=== PATIENT | male | born 1955 | race Caucasian/White ===

== ENCOUNTER 2016-11-02 08:50 | Inpatient (IN) | payer OTHER ==
[2016-11-02] MEDS ORDERED: NORMAL SALINE 1000 ML 1,000 ML IV PRN (09:37)
--- NOTE | 2016-11-02 09:39 | ER Document Report ---
ED Medical Screen (RME) - General Chief Complaint: Rectal Bleeding Stated Complaint: RECTAL BLEEDING Time Seen by Provider: 11/02/16 09:29 Mode of Arrival: Wheelchair Information source: Patient TRAVEL OUTSIDE OF THE [place] IN LAST 30 DAYS: No - HPI Patient complains to provider of: Rectal bleeding Onset: Yesterday Notes: 11/02/16 09:38 Patient is a 61-year-old male who presents to the emergency room complaining of rectal bleeding with large clot passage since yesterday around 3 PM, states he has had 6 large bloody bowel movements, he is now having hot flashes and feeling lightheaded, has a history of perforated diverticulum in the past with colon resection, this occurred in 2000, he required a transfusion at that time as well, he denies any abdominal pain, hypertension and CVA, currently takes Aggrenox - Related Data Allergies/Adverse Reactions: No Known Allergies Allergy (Verified 11/02/16 08:53) Past Medical History - Past Medical History Cardiac Medical History: Reports: Hx Hypertension Denies: Hx Coronary Artery Disease, Hx Heart Attack Pulmonary Medical History: Denies: Hx Asthma, Hx Bronchitis, Hx COPD, Hx Pneumonia Neurological Medical History: Denies: Hx Cerebrovascular Accident, Hx Seizures Endocrine Medical History: Reports: Hx Diabetes Mellitus Type 2 Renal/ Medical History: Denies: Hx Peritoneal Dialysis GI Medical History: Denies: Hx Hepatitis, Hx Hiatal Hernia, Hx Ulcer Musculoskeltal Medical History: Denies Hx Arthritis Infectious Medical History: Denies: Hx Hepatitis Past Surgical History: Denies: Hx Open Heart Surgery, Hx Pacemaker - Immunizations Hx Diphtheria, Pertussis, Tetanus Vaccination: No Physical Exam - Vital signs Vitals: Temp Pulse Resp BP Pulse Ox 97.6 F 128 H 20 127/81 H 96 11/02/16 08:56 11/02/16 08:56 11/02/16 08:56 11/02/16 08:56 11/02/16 08:56 Course - Vital Signs Vital signs: Temp Pulse Resp BP Pulse Ox 97.6 F 128 H 20 127/81 H 96 11/02/16 08:56 11/02/16 08:56 11/02/16 08:56 11/02/16 08:56 11/02/16 08:56
[2016-11-02 10:16] LABS: ABSOLUTE BASOPHILS # (AUTO) 0.1 10^3/uL (0.0-0.2); ABSOLUTE LYMPHOCYTES (AUTO) 1.4 10^3/uL (0.5-4.7); ABSOLUTE MONOCYTES (AUTO) 0.6 10^3/uL (0.1-1.4); ABSOLUTE NEUT (AUTO) 8.4 10^3/uL (1.7-8.2); BASOPHILS % (AUTO) 0.5 % (0-2); EOSINOPHILS % (AUTO) 0.3 % (0-6); HEMATOCRIT 39.5 % (37.9-51.0); HEMOGLOBIN 12.9 g/dL (13.5-17.0); HGB HCT DIFFERENCE -0.8; LYMPHOCYTES % (AUTO) 13.7 % (13-45); MEAN CORPUSCULAR HEMOGLOBIN 31.6 pg (27.0-33.4); MEAN CORPUSCULAR HGB CONC 32.6 g/dL (32.0-36.0); MEAN CORPUSCULAR VOLUME 97 fl (80-97); MONOCYTES % (AUTO) 5.6 % (3-13); RED BLOOD COUNT 4.07 10^6/uL (4.35-5.55); RED CELL DISTRIBUTION WIDTH 14.4 % (11.5-14.0); SEGMENTED NEUTROPHILS % (AUTO) 79.9 % (42-78); WHITE BLOOD COUNT 10.6 10^3/uL (4.0-10.5)
[2016-11-02 10:22] LABS: PARTIAL THROMBOPLASTIN TIME 25.6 SEC (23.5-35.8); PROTHROMBIN TIME 14.4 SEC (11.4-15.4)
--- NOTE | 2016-11-02 10:35 | ER Document Report ---
ED GI Bleed / Rectal Pain - General Chief Complaint: Rectal Bleeding Stated Complaint: RECTAL BLEEDING Time Seen by Provider: 11/02/16 09:29 Mode of Arrival: Wheelchair Notes: Patient says that he began to experience rectal bleeding yesterday. He has had about 6 bowel movements with blood and clots. Patient has a history of partial colectomy, descending, for bleeding in 2000. He has not had any bleeding problems since then. Had an upper GI done earlier this month and had a colonoscopy about 1 year ago. Both of these procedures were performed by Dr. George. Patient denies having any abdominal pain. Has had some nausea but not vomiting. Says he has felt feverish after having bowel movements for the last 24 hours. Patient is currently on Aggrenox as he previously had been diagnosed as having a mini stroke. TRAVEL OUTSIDE OF THE [place] IN LAST 30 DAYS: No - Related Data Allergies/Adverse Reactions: No Known Allergies Allergy (Verified 11/02/16 08:53) Home Medications: Current Home Medications Aspirin/Dipyridamole [Aggrenox 25 mg/200 mg Capsule SA] 1 cap PO Q12 11/02/16 [ History] Dapagliflozin/Metformin HCl [Xigduo Xr 5 mg-1,000 mg Tablet] 1 tab PO DAILY [History] Fenofibrate 160 mg PO DAILY 11/02/16 [History] Hydrochlorothiazide 25 mg PO DAILY 11/02/16 [History] Insulin Detemir [Levemir Flextouch] 50 units SQ BID 11/02/16 [History] Irbesartan [Avapro] 300 mg PO DAILY 11/02/16 [History] Lansoprazole [Prevacid] 30 mg PO DAILY 11/02/16 [History] Liraglutide [Victoza 2-River] 1.8 mg SQ DAILY 11/02/16 [History] Past Medical History - General Information source: Patient - Social History Smoking Status: Unknown if Ever Smoked Cigarette use (# per day): No Family History: Reviewed & Not Pertinent Patient has suicidal ideation: No Patient has homicidal ideation: No - Past Medical History Cardiac Medical History: Reports: Hx Hypertension Neurological Medical History: Reports: Hx Cerebrovascular Accident Endocrine Medical History: Reports: Hx Diabetes Mellitus Type 2 GI Medical History: Reports: Other - History of Abbott's esophagitis. Denies: Hx Hepatitis, Hx Hiatal Hernia, Hx Ulcer Musculoskeltal Medical History: Denies Hx Arthritis Infectious Medical History: Denies: Hx Hepatitis Past Surgical History: Reports: Hx Abdominal Surgery, Hx Herniorrhaphy, Other - Colectomy for lower GI bleeding 2000 - Immunizations Hx Diphtheria, Pertussis, Tetanus Vaccination: No Review of Systems - Review of Systems Notes: REVIEW OF SYSTEMS: CONSTITUTIONAL : Feels like he has a fever after having each bloody bowel movement over the last 24 hours. EENT: Denies eye, ear, nose or mouth or throat pain or other symptoms. CARDIOVASCULAR: Denies chest pain. RESPIRATORY: Denies cough, chest congestion, or shortness of breath. GASTROINTESTINAL: Denies abdominal pain or nausea, vomiting, or diarrhea. See HPI. GENITOURINARY: Denies difficulty or painful urinating, urinary frequency, blood in urine. MUSCULOSKELETAL: Denies back or neck pain. Denies joint pain or swelling. SKIN: Denies rash or skin lesions. NEUROLOGICAL: Denies LOC or altered mental status. Denies headache. Denies sensory loss or motor deficits. ALL OTHER SYSTEMS REVIEWED AND NEGATIVE. Physical Exam - Vital signs Vitals: Temp Pulse Resp BP Pulse Ox 97.6 F 128 H 20 127/81 H 96 11/02/16 08:56 11/02/16 08:56 11/02/16 08:56 11/02/16 08:56 11/02/16 08:56 Interpretation: Tachycardic - Notes Notes: PHYSICAL EXAMINATION: GENERAL: Well-appearing, in no acute distress. Tachycardia in triage. HEAD: Atraumatic, normocephalic. EYES: Pupils equal round and reactive to light, extraocular movements intact. ENT: oropharynx clear without exudates. Moist mucous membranes. NECK: Normal range of motion, supple. LUNGS: Breath sounds clear and equal bilaterally. HEART: Regular rate and rhythm without murmurs. ABDOMEN: Soft, nontender. No guarding or rebound. Rectal exam with gross blood present. No masses felt. No hemorrhoids seen or felt. BACK: No tenderness throughout entire back. EXTREMITIES: Normal range of motion without pain. NEUROLOGICAL: Normal speech, normal gait. Normal sensory, motor, and reflex exams. Awake, alert, and oriented x3. Cranial nerves normal. SKIN: Warm, dry, no rashes. Course - Re-evaluation Re-evalutation: 11/02/16 11:[address] George who will consult on the patient. Will call patient's primary care physician for admission. 11/02/16 11:[address] Palacio patient's primary care provider, and he will admit the patient to [facility]. - Vital Signs Vital signs: Temp Pulse Resp BP Pulse Ox 98.5 F 100 18 122/72 95 11/02/16 19:55 11/02/16 19:55 11/02/16 19:55 11/02/16 19:55 11/02/16 19:55 - Laboratory Result Diagrams: 11/02/16 17:03 11/02/16 09:50 Laboratory results interpreted by me: 11/02/16 11/02/16 09:50 09:50 WBC 10.6 H RBC 4.07 L Hgb 12.9 L RDW 14.4 H Seg Neutrophils % 79.9 H Absolute Neutrophils 8.4 H Sodium 135.7 L Carbon Dioxide 16 L Anion Gap 22 H BUN 23 H Creatinine 1.29 H Est GFR (Non-Af Amer) 57 L Glucose 492 H* Total Protein 6.2 L Critical Care Note - Critical Care Note Total time excluding time spent on procedures (mins): 30 Discharge - Discharge Clinical Impression: Rectal bleeding, Hyperglycemia Admitting Provider: Marty Unit Admitted: [facility]
[2016-11-02 10:37] LABS: ALANINE AMINOTRANSFERASE 37 U/L (21-72); ALBUMIN 3.7 g/dL (3.5-5.0); ALKALINE PHOSPHATASE 112 U/L (38-126); ASPARTATE AMINO TRANSFERASE 17 U/L (17-59); BILIRUBIN,DIRECT 0.4 mg/dL (0.0-0.4); BILIRUBIN,TOTAL 0.6 mg/dL (0.2-1.3); BLOOD UREA NITROGEN 23 mg/dL (7-20); CALCIUM 9.3 mg/dL (8.4-10.2); CHLORIDE 98 mmol/L (98-107); CREATININE RESULT 1.29 mg/dL (0.52-1.25); TOTAL PROTEIN 6.2 g/dL (6.3-8.2)
[2016-11-02 10:50] LABS: CARBON DIOXIDE 16 mmol/L (22-30); SODIUM 135.7 mmol/L (137-145)
[2016-11-02 10:51] LABS: ANION GAP 22 (5-19)
[2016-11-02 10:53] LABS: GLUCOSE 492 mg/dL (75-110)
[2016-11-02] MEDS ORDERED: INSULIN REG, HUMAN 100 UNIT/ML 3 ML VIAL (PYX) SUBCUT ONE (11:40)
[2016-11-02] MEDS ORDERED: INSULIN LISPRO 100 UNIT/ML 3 ML VIAL SUBCUT PRN (12:45)
[2016-11-02] MEDS ORDERED: DEXTROSE 50%-WATER 25 GM/50 ML DISP.SYRIN IV PRN ×2 (12:45)
[2016-11-02] MEDS ORDERED: GLUCAGON,HUMAN RECOMB 1 MG INJ IM PRN (12:45)
[2016-11-02] MEDS ORDERED: DEXTROSE 40% GEL 15 GM TUBE PO PRN ×2 (12:45)
[2016-11-02] MEDS ORDERED: PEG 3350/NA SULF,BICARB,CL/KCL 4000 ML PO ONE (13:00)
--- NOTE | 2016-11-02 17:07 | PDOC H&P ---
History of Present Illness Admission Date/PCP: 11/02/16 12:38 ANGÉLICA CASTRO, Patient complains of: Rectal bleeding History of Present Illness: REYES CISNEROS JR is a 61 year old male Past medical history of diverticulosis status post partial colectomy was in his usual state of health until apparently 24 hours ago when he woke up with rectal bleeding. He apparently had some watermelon and did not think anything of it. She came into the emergency room after another episode of rectal bleed to be evaluated was found to be in distress and was admitted for further evaluation and treatment. Past Medical History Cardiac Medical History: Reports: Hypertension Denies: Coronary Artery Disease, Myocardial Infarction Pulmonary Medical History: Denies: Asthma, Bronchitis, Chronic Obstructive Pulmonary Disease (COPD), Pneumonia Neurological Medical History: Reports: Ischemic CVA Denies: Seizures Endocrine Medical History: Reports: Diabetes Mellitus Type 2 GI Medical History: Reports: Diverticulitis, Gastroesophageal Reflux Disease, Other - History of Abbott's esophagitis Denies: Hepatitis, Hiatal Hernia Musculoskeltal Medical History: Denies: Arthritis Hematology: Denies: Anemia, Sickle Cell Disease Past Surgical History Past Surgical History: Reports: Herniorrhaphy, Other - Colectomy for lower GI bleeding 2000 Denies: Pacemaker Social History Information Source: Patient Smoking Status: Never Smoker Frequency of Alcohol Use: None Hx Recreational Drug Use: No Drugs: None Hx Prescription Drug Abuse: No - Advance Directive Resuscitation Status: Full Code Family History Family History: Other - Dementia Parental Family History Reviewed: Yes Children Family History Reviewed: Yes Sibling(s) Family History Reviewed.: Yes Medication/Allergy Home Medications: Aspirin/Dipyridamole [Aggrenox 25 mg/200 mg Capsule SA] 1 cap PO Q12 11/02/16 Dapagliflozin/Metformin HCl [Xigduo Xr 5 mg-1,000 mg Tablet] 1 tab PO DAILY Fenofibrate 160 mg PO DAILY 11/02/16 Hydrochlorothiazide 25 mg PO DAILY 11/02/16 Insulin Detemir [Levemir Flextouch] 50 units SQ BID 11/02/16 Irbesartan [Avapro] 300 mg PO DAILY 11/02/16 Lansoprazole [Prevacid] 30 mg PO DAILY 11/02/16 Liraglutide [Victoza 2-River] 1.8 mg SQ DAILY 11/02/16 Allergies/Adverse Reactions: No Known Allergies Allergy (Verified 11/02/16 08:53) Review of Systems All systems: as per H Physical Exam Vital Signs: Temp Pulse Resp BP Pulse Ox 97.6 F 98 19 130/72 H 95 11/02/16 16:24 11/02/16 16:24 11/02/16 16:24 11/02/16 16:24 11/02/16 16:24 Intake & Output 11/01/16 11/02/16 11/03/16 06:59 06:59 06:59 Weight 98.7 kg General appearance: PRESENT: mild distress Head exam: PRESENT: atraumatic Eye exam: PRESENT: conjunctiva pink Mouth exam: PRESENT: dry mucosa Neck exam: ABSENT: carotid bruit Respiratory exam: PRESENT: clear to auscultation qiana Cardiovascular exam: PRESENT: RRR, +S1, +S2 Pulses: PRESENT: +1 pedal pulses bilateral Vascular exam: PRESENT: normal capillary refill GI/Abdominal exam: PRESENT: soft, tenderness Extremities exam: PRESENT: full ROM Musculoskeletal exam: PRESENT: ambulatory Neurological exam: PRESENT: alert, awake, CN II-XII grossly intact Results Laboratory Results: 11/02/16 14:55 Stool Occult Blood POSITIVE Assessment & Plan - Diagnosis (1) Lower GI bleed Is this a current diagnosis for this admission?: YesPlan: n.p.o. Colonoscopy. Will check H&H (2) Diabetes mellitus Qualifiers: Diabetes mellitus type: type 2 Diabetes mellitus complication status: with hyperglycemia (3) Hypertension Is this a current diagnosis for this admission?: Yes (4) Hyperlipidemia Is this a current diagnosis for this admission?: Yes (5) Hyperlipidemia associated with type 2 diabetes mellitus Is this a current diagnosis for this admission?: Yes (6) Old cerebrovascular accident (CVA) without late effect Is this a current diagnosis for this admission?: Yes (7) Esophagitis, erosive Is this a current diagnosis for this admission?: Yes
[2016-11-02 17:08] LABS: MEAN CORPUSCULAR HEMOGLOBIN 31.8 pg (27.0-33.4); RED CELL DISTRIBUTION WIDTH 14.4 % (11.5-14.0)
[2016-11-02 17:30] LABS: HEMATOCRIT 30.7 % (37.9-51.0); HGB HCT DIFFERENCE 0.5; MEAN CORPUSCULAR VOLUME 94 fl (80-97); RED BLOOD COUNT 3.29 10^6/uL (4.35-5.55)
[2016-11-02 17:31] LABS: HEMOGLOBIN 10.4 g/dL (13.5-17.0)
[2016-11-02] MEDS ORDERED: FLUMAZENIL INJ 0.5 MG/5 ML VIAL IV ONE (17:49)
[2016-11-02] MEDS ORDERED: FENTANYL CITRATE INJ/PF 100 MCG/2 ML AMPUL ONE (17:49)
[2016-11-02] MEDS ORDERED: NALOXONE HCL INJ/PF 0.4 MG/1 ML SDV ONE (17:49)
[2016-11-02] MEDS ORDERED: EPINEPHRINE INJ 1 MG/10 ML DISP.SYRIN ONE (17:50)
[2016-11-02] MEDS ORDERED: GLUCAGON,HUMAN RECOMB 1 MG INJ ONE (17:50)
[2016-11-02] MEDS: NORMAL SALINE 1000 ML 1,000 ML IV PRN (17:53)
[2016-11-02] MEDS: LANSOPRAZOLE 30 MG TAB.RAP.DR PO SCH (17:54)
[2016-11-02] MEDS ORDERED: (PENDING PHARMACY ID) (Lansoprazole [Lansoprazole] 30 MG) PO SCH (18:00)
[2016-11-02] MEDS: MIDAZOLAM 2 MG/2 ML INJ ONE ×2 (19:00→19:05)
--- NOTE | 2016-11-02 19:48 | PDOC CONSULTATION ---
Consultation Consult Date: 11/02/16 History of Present Illness Admission Date/PCP: 11/02/16 12:38 ANGÉLICA ARENASCELIA, History of Present Illness: This is a 61-year-old patient who was admitted to the emergency room with acute rectal bleeding. He started bleeding yesterday evening and had 6-7 bloody bowel movements before coming to the hospital. He denies abdominal pain, nausea , or vomiting. He has a history of pancolonic diverticulosis diagnosed on his colonoscopy in March 2015. He had an EGD about 3 weeks ago for his history of Abbott's esophagus and this only showed gastritis. He is on a PPI. His admission hemoglobin was 12.9 but a repeat 7 hours later was 10.5. Past Medical History Cardiac Medical History: Reports: Hypertension Denies: Coronary Artery Disease, Myocardial Infarction Pulmonary Medical History: Denies: Asthma, Bronchitis, Chronic Obstructive Pulmonary Disease (COPD), Pneumonia Neurological Medical History: Reports: Ischemic CVA Denies: Seizures Endocrine Medical History: Reports: Diabetes Mellitus Type 2 GI Medical History: Reports: Diverticulitis, Gastroesophageal Reflux Disease, Other - History of Abbott's esophagitis Denies: Hepatitis, Hiatal Hernia GI History Note: Diverticulosis, reflux disease, Abbott's esophagus indeterminate for dysplasia with radiofrequency ablation in the past Musculoskeltal Medical History: Denies: Arthritis Hematology: Denies: Anemia, Sickle Cell Disease Past Surgical History Past Surgical History: Colonoscopy March 2015 and October 2016, multiple EGDs with RFA Past Surgical History: Reports: Herniorrhaphy, Other - Colectomy for lower GI bleeding 2000 Denies: Pacemaker Social History Smoking Status: Never Smoker Frequency of Alcohol Use: None Hx Recreational Drug Use: No Drugs: None Hx Prescription Drug Abuse: No - Advance Directive Resuscitation Status: Full Code Family History Family History: Other - Dementia Parental Family History Reviewed: No Children Family History Reviewed: NA Sibling(s) Family History Reviewed.: NA Medication/Allergy Home Medications: Aspirin/Dipyridamole [Aggrenox 25 mg/200 mg Capsule SA] 1 cap PO Q12 11/02/16 Dapagliflozin/Metformin HCl [Xigduo Xr 5 mg-1,000 mg Tablet] 1 tab PO DAILY Fenofibrate 160 mg PO DAILY 11/02/16 Hydrochlorothiazide 25 mg PO DAILY 11/02/16 Insulin Detemir [Levemir Flextouch] 50 units SQ BID 11/02/16 Irbesartan [Avapro] 300 mg PO DAILY 11/02/16 Lansoprazole [Prevacid] 30 mg PO DAILY 11/02/16 Liraglutide [Victoza 2-River] 1.8 mg SQ DAILY 11/02/16 Allergies/Adverse Reactions: No Known Allergies Allergy (Verified 11/02/16 08:53) Review of Systems All systems: reviewed and no additional remarkable complaints except as stated Physical Exam Vital Signs: Temp Pulse Resp BP Pulse Ox 97.6 F 100 16 114/70 95 11/02/16 16:24 11/02/16 19:35 11/02/16 19:35 11/02/16 19:35 11/02/16 19:35 Intake & Output 11/01/16 11/02/16 11/03/16 06:59 06:59 06:59 Intake Total 825 Balance 825 Weight 98.7 kg Exam: General: Patient is alert and looks well. HEENT: There is some pallor but no jaundice . PERRLA. Oropharynx normal Respiratory: No chest deformity. No respiratory distress. Chest wall palpitation was unremarkable. Breath sounds were normal Cardiovascular: Heart sounds 1 and 2 normal with no murmurs. Abdominal: Not distended. Soft and nontender. Liver and spleen not palpable. No ascites demonstrated. Bowel sounds active. Rectal examination was deferred. Extremities: No edema Neurological: Alert and oriented x4. Grossly nonfocal. Normal speech Skin: No significant rash Psychological: Normal affect Results Laboratory Results: 11/02/16 17:03 11/02/16 11/02/16 14:55 17:03 WBC 9.0 RBC 3.29 L Hgb 10.4 L D Hct 30.7 L MCV 94 MCH 31.8 MCHC 34.0 RDW 14.4 H Plt Count 162 Stool Occult Blood POSITIVE Assessment & Plan - Diagnosis (1) Diverticulosis large intestine w/o perforation or abscess w/bleeding Is this a current diagnosis for this admission?: YesPlan: He likely bled from his diverticular disease. His bleeding actually stopped and he is stool came out clear with the bowel prep. He will undergo a colonoscopy to rule out other pathologies. An EGD a few weeks ago was unremarkable except for gastritis. Biopsy of his esophagus did not show intestinal metaplasia. His H&H should be followed closely (2) Abbott's esophagus Is this a current diagnosis for this admission?: YesPlan: Continue PPI indefinitely (3) Lower GI bleed Is this a current diagnosis for this admission?: Yes (4) Rectal bleeding Is this a current diagnosis for this admission?: Yes
--- NOTE | 2016-11-02 19:50 | Operative Report ---
Operative Report DATE OF SURGERY: 11/02/16 Operative Report: Pre-op diagnosis: GI bleed Post-op diagnosis: 1. Pancolonic diverticulosis 2. Ulcerated diverticulum status post epinephrine injection Surgery: Colonoscopy epinephrine injection Medications: Versed 4mg, Fentanyl 100mcg IV push Tissue removed: None Procedure: After informed consent obtained from patient, conscious sedation was achieved. A digital rectal examination was performed and this was unremarkable. The colonoscope was inserted into the rectum and advanced to the cecum. The appendiceal orifice and the terminal ileum were both identified. The mucosa was examined into details as the colonoscope was slowly pulled out of the patient. The endoscope was retroflexed in the rectum. Patient tolerated the procedure well. Findings Terminal ileum: Normal Cecum: Normal Ascending colon: A few diverticuli Transverse colon: A few diverticuli Descending colon: Moderate amount of diverticula Sigmoid colon: Moderate amount of diverticuli. There was a small clot noted at the mouth of an ulcerated diverticulum. This may have been the diverticulum that bled. It was injected with epinephrine 1 in 10,000 Rectum: Normal except for internal hemorrhoids Plan: Continue following H&H OPERATION: .
[2016-11-02] MEDS: LOSARTAN POTASSIUM 50 MG TABLET PO SCH (21:27)
[2016-11-02] MEDS: INSULIN DETEMIR 100 UNIT/ML 3 ML PEN SUBCUT SCH (21:27)
[2016-11-02 22:12] LABS: HEMATOCRIT 29.1 % (37.9-51.0); HEMOGLOBIN 9.8 g/dL (13.5-17.0); HGB HCT DIFFERENCE 0.3; MEAN CORPUSCULAR HEMOGLOBIN 31.6 pg (27.0-33.4); MEAN CORPUSCULAR HGB CONC 33.7 g/dL (32.0-36.0); MEAN CORPUSCULAR VOLUME 94 fl (80-97); RED CELL DISTRIBUTION WIDTH 14.4 % (11.5-14.0); WHITE BLOOD COUNT 7.9 10^3/uL (4.0-10.5)
[2016-11-03] MEDS: NORMAL SALINE 1000 ML 1,000 ML IV PRN (02:39)
[2016-11-03 05:03] LABS: ABSOLUTE EOSINOPHILS # (AUTO) 0.1 10^3/uL (0.0-0.6); ABSOLUTE LYMPHOCYTES (AUTO) 1.7 10^3/uL (0.5-4.7); ABSOLUTE MONOCYTES (AUTO) 0.4 10^3/uL (0.1-1.4); ABSOLUTE NEUT (AUTO) 2.5 10^3/uL (1.7-8.2); BASOPHILS % (AUTO) 0.9 % (0-2); EOSINOPHILS % (AUTO) 2.5 % (0-6); HEMATOCRIT 26.5 % (37.9-51.0); HEMOGLOBIN 9.1 g/dL (13.5-17.0); HGB HCT DIFFERENCE 0.8; LYMPHOCYTES % (AUTO) 35.9 % (13-45); MEAN CORPUSCULAR HEMOGLOBIN 31.9 pg (27.0-33.4); MEAN CORPUSCULAR HGB CONC 34.3 g/dL (32.0-36.0); MEAN CORPUSCULAR VOLUME 93 fl (80-97); MONOCYTES % (AUTO) 8.6 % (3-13); RED BLOOD COUNT 2.85 10^6/uL (4.35-5.55); RED CELL DISTRIBUTION WIDTH 14.7 % (11.5-14.0); SEGMENTED NEUTROPHILS % (AUTO) 52.1 % (42-78); WHITE BLOOD COUNT 4.8 10^3/uL (4.0-10.5)
[2016-11-03 05:13] LABS: ALANINE AMINOTRANSFERASE 41 U/L (21-72); ALBUMIN 2.6 g/dL (3.5-5.0); ALKALINE PHOSPHATASE 48 U/L (38-126); ANION GAP 8 (5-19); ASPARTATE AMINO TRANSFERASE 13 U/L (17-59); BILIRUBIN,DIRECT 0.3 mg/dL (0.0-0.4); BILIRUBIN,TOTAL 0.5 mg/dL (0.2-1.3); BLOOD UREA NITROGEN 16 mg/dL (7-20); CALCIUM 7.8 mg/dL (8.4-10.2); CARBON DIOXIDE 25 mmol/L (22-30); CHLORIDE 103 mmol/L (98-107); CREATININE RESULT 0.88 mg/dL (0.52-1.25); GLUCOSE 212 mg/dL (75-110); TOTAL PROTEIN 4.5 g/dL (6.3-8.2)
[2016-11-03 05:27] LABS: POTASSIUM 3.6 mmol/L (3.6-5.0)
[2016-11-03] MEDS: LANSOPRAZOLE 30 MG TAB.RAP.DR PO SCH (05:47)
--- NOTE | 2016-11-03 07:53 | EKG REPORT ---
SEVERITY:- ABNORMAL ECG - SINUS RHYTHM NONSPECIFIC T ABNORMALITIES, LATERAL LEADS : Confirmed by: Edgar Rinaldi 03-Nov-2016 07:52:43
[2016-11-03] MEDS ORDERED: FENOFIBRATE NANOCRYSTALLIZED 145 MG TABLET PO SCH (08:00)
[2016-11-03] MEDS: INSULIN DETEMIR 100 UNIT/ML 3 ML PEN SUBCUT SCH (09:36)
[2016-11-03] MEDS: LOSARTAN POTASSIUM 50 MG TABLET PO SCH (09:36)
[2016-11-03] MEDS ORDERED: DAPAGLIFLOZIN PO SCH (10:00)
[2016-11-03] MEDS ORDERED: METFORMIN HCL PO SCH (10:00)
[2016-11-03] MEDS ORDERED: (PENDING PHARMACY ID) (Fenofibrate [Fenofibrate] 160 MG) PO SCH (10:00)
[2016-11-03] MEDS ORDERED: (PENDING PHARMACY ID) (Irbesartan [Avapro] 300 MG) PO SCH (10:00)
[2016-11-03] MEDS ORDERED: [UNRECOGNIZED DRUG - OTHER] PO SCH (10:00)
[2016-11-03 12:14] LABS: HEMOGLOBIN 9.7 g/dL (13.5-17.0); HGB HCT DIFFERENCE 0.1; MEAN CORPUSCULAR HGB CONC 33.5 g/dL (32.0-36.0); MEAN CORPUSCULAR VOLUME 95 fl (80-97); RED BLOOD COUNT 3.04 10^6/uL (4.35-5.55); RED CELL DISTRIBUTION WIDTH 14.6 % (11.5-14.0); WHITE BLOOD COUNT 5.9 10^3/uL (4.0-10.5)
--- NOTE | 2016-11-03 14:03 | PDOC DISCHARGE SUMMARY ---
General - Admit/Disc Date/PCP Admission Date/Primary Care Provider: 11/02/16 12:38 ANGÉLICA CASTRO, Discharge Date: 11/03/16 - Discharge Diagnosis (1) Lower GI bleed Is this a current diagnosis for this admission?: YesSummary: Resolved with injection doing the colonoscopy of epinephrine at the bleeding sigmoid diverticuli (2) Diabetes mellitus Is this a current diagnosis for this admission?: YesSummary: Improved control with the use of sliding scale and regular scheduled insulin and diabetic diet (3) Hypertension Is this a current diagnosis for this admission?: YesSummary: Well controlled with medication (4) Hyperlipidemia Is this a current diagnosis for this admission?: Yes (5) Hyperlipidemia associated with type 2 diabetes mellitus Is this a current diagnosis for this admission?: Yes (6) Old cerebrovascular accident (CVA) without late effect Is this a current diagnosis for this admission?: Yes (7) Esophagitis, erosive Is this a current diagnosis for this admission?: Yes - Additional Information Resuscitation Status: Full Code Discharge Diet: Diabetic Discharge Activity: Activity As Tolerated Home Medications: Aspirin/Dipyridamole [Aggrenox 25 mg/200 mg Capsule SA] 1 cap PO Q12 11/02/16 Dapagliflozin/Metformin HCl [Xigduo Xr 5 mg-1,000 mg Tablet] 1 tab PO DAILY Fenofibrate 160 mg PO DAILY 11/02/16 Hydrochlorothiazide 25 mg PO DAILY 11/02/16 Insulin Detemir [Levemir Flextouch] 50 units SQ BID 11/02/16 Irbesartan [Avapro] 300 mg PO DAILY 11/02/16 Lansoprazole [Prevacid] 30 mg PO DAILY 11/02/16 Liraglutide [Victoza 2-River] 1.8 mg SQ DAILY 11/02/16 History of Present Illness History of Present Illness: REYES CISNEROS JR is a 61 year old male Past medical history of diverticulosis status post partial colectomy was in his usual state of health until apparently 24 hours ago when he woke up with rectal bleeding. He apparently had some watermelon and did not think anything of it. She came into the emergency room after another episode of rectal bleed to be evaluated was found to be in distress and was admitted for further evaluation and treatment. Hospital Course Hospital Course: The patient was admitted to IMCU. He has been given IV fluids. He has been given a bowel prep and underwent colonoscopy. During the colonoscopy a bleeding area of diverticuli has been noted. The area was injected with epinephrine which has resolved the symptoms. The patient tolerated IV fluids and advance diet well. His H&H has decreased before the procedure but has improved up to 9.7 on the day of discharge. Physical Exam Vital Signs: Temp Pulse Resp BP Pulse Ox 97.4 F 86 12 125/79 98 11/03/16 12:00 11/03/16 12:00 11/03/16 12:00 11/03/16 12:00 11/03/16 12:00 Intake & Output 11/02/16 11/03/16 11/04/16 06:59 06:59 06:59 Intake Total 2350 484 Balance 2350 484 Weight 98.6 kg General appearance: PRESENT: no acute distress Head exam: PRESENT: atraumatic Eye exam: PRESENT: conjunctival injection Neck exam: ABSENT: carotid bruit Respiratory exam: PRESENT: clear to auscultation qiana Cardiovascular exam: PRESENT: RRR, +S1, +S2 Pulses: PRESENT: normal carotid pulses, +1 pedal pulses bilateral Vascular exam: PRESENT: normal capillary refill GI/Abdominal exam: PRESENT: normal bowel sounds, soft Extremities exam: PRESENT: full ROM Musculoskeletal exam: PRESENT: ambulatory Neurological exam: PRESENT: alert Results Laboratory Results: 11/03/16 12:02 11/03/16 04:42 11/02/16 11/02/16 11/02/16 14:55 17:03 21:56 WBC 9.0 7.9 RBC 3.29 L 3.10 L Hgb 10.4 L D 9.8 L Hct 30.7 L 29.1 L MCV 94 94 MCH 31.8 31.6 MCHC 34.0 33.7 RDW 14.4 H 14.4 H Plt Count 162 152 Seg Neutrophils % Lymphocytes % Monocytes % Eosinophils % Basophils % Absolute Neutrophils Absolute Lymphocytes Absolute Monocytes Absolute Eosinophils Absolute Basophils Sodium Potassium Chloride Carbon Dioxide Anion Gap BUN Creatinine Est GFR ( Amer) Est GFR (Non-Af Amer) Glucose Calcium Total Bilirubin AST ALT Alkaline Phosphatase Total Protein Albumin Stool Occult Blood POSITIVE 11/03/16 11/03/16 11/03/16 04:42 04:42 12:02 WBC 4.8 5.9 RBC 2.85 L 3.04 L Hgb 9.1 L 9.7 L Hct 26.5 L 29.0 L MCV 93 95 MCH 31.9 32.0 MCHC 34.3 33.5 RDW 14.7 H 14.6 H Plt Count 147 L 173 Seg Neutrophils % 52.1 Lymphocytes % 35.9 Monocytes % 8.6 Eosinophils % 2.5 Basophils % 0.9 Absolute Neutrophils 2.5 Absolute Lymphocytes 1.7 Absolute Monocytes 0.4 Absolute Eosinophils 0.1 Absolute Basophils 0.0 Sodium 136.0 L Potassium 3.6 D Chloride 103 Carbon Dioxide 25 Anion Gap 8 BUN 16 Creatinine 0.88 Est GFR ( Amer) > 60 Est GFR (Non-Af Amer) > 60 Glucose 212 H Calcium 7.8 L Total Bilirubin 0.5 AST 13 L ALT 41 Alkaline Phosphatase 48 Total Protein 4.5 L Albumin 2.6 L Stool Occult Blood Plan Discharge Plan: Discharge home. Continue diabetic diet. Would recommend diverticulosis instructions on the diet. Follow-up in the office to recheck the H&H in 1 week
[2016-11-03 15:17] VITALS: BP 130/72
== END 2016-11-03 15:47 | disposition home or self-care (01) | DRG 378 ==
LOC: ER 08:50 → EH 11:55 → UNDOADMIN 11:55 → EH 12:38 → 3S 13:40 → EH 13:40
PROVIDERS: ADMIT Internal Medicine; ATTEND Internal Medicine
PROC: 0DJD8ZZ Inspection of Lower Intestinal Tract, Via Natural or Artificial Opening Endoscopic (ICD-10-PCS; 2016-11-02)
PROC: 3E0H8GC Introduction of Other Therapeutic Substance into Lower GI, Via Natural or Artificial Opening Endoscopic (ICD-10-PCS; principal; 2016-11-02 18:00)
DX: K57.31 Diverticulosis of large intestine without perforation or abscess with bleeding (principal); K22.10 Ulcer of esophagus without bleeding; E11.65 Type 2 diabetes mellitus with hyperglycemia; I10 Essential (primary) hypertension; E78.5 Hyperlipidemia, unspecified; K21.9 Gastro-esophageal reflux disease without esophagitis; K64.8 Other hemorrhoids; Z90.49 Acquired absence of other specified parts of digestive tract; Z79.82 Long term (current) use of aspirin; Z79.4 Long term (current) use of insulin; Z79.899 Other long term (current) drug therapy; Z86.73 Personal history of transient ischemic attack (TIA), and cerebral infarction without residual deficits
CPT/HCPCS: 36415; 45381; 80053; 82272; 82962; 85025; 85027; 85610; 85730; 86850; 86900; 86901; 93005; 93010; 99291; J0171; J1610; J1815; J2250; J2310; J3010; J3490; J7030

== ENCOUNTER 2016-11-06 13:58 | Emergency (ER) | payer OTHER ==
--- NOTE | 2016-11-06 14:51 | ER Document Report ---
ED Medical Screen (RME) - General Chief Complaint: Abnormal Lab Results Stated Complaint: ABNORMAL LABS Time Seen by Provider: 11/06/16 14:47 Mode of Arrival: Wheelchair Information source: Patient Notes: 61 yo male presents to ed for blood transfusion. States his md Dr George sent him to the ed for a blood transfusion due to chronic anemia. His hemogram was done at [facility] this am. Hemoglobin is 8.2 and hemotocrit is 23.6. Patient states he is feeling very weak and tired and he is pale. I have greeted and performed a rapid initial assessment of this patient. A comprehensive ED assessment and evaluation of the patient, analysis of test results and completion of medical decision making process will be conducted by an additional ED providers. TRAVEL OUTSIDE OF THE [place] IN LAST 30 DAYS: No - Related Data Allergies/Adverse Reactions: No Known Allergies Allergy (Verified 11/02/16 08:53) Past Medical History - Past Medical History Cardiac Medical History: Reports: Hx Hypertension Denies: Hx Coronary Artery Disease, Hx Heart Attack Pulmonary Medical History: Denies: Hx Asthma, Hx Bronchitis, Hx COPD, Hx Pneumonia Neurological Medical History: Reports: Hx Cerebrovascular Accident. Denies: Hx Seizures Endocrine Medical History: Reports: Hx Diabetes Mellitus Type 2 Renal/ Medical History: Denies: Hx Peritoneal Dialysis GI Medical History: Reports: Hx Diverticulitis, Hx Gastroesophageal Reflux Disease. Denies: Hx Hepatitis, Hx Hiatal Hernia, Hx Ulcer Musculoskeltal Medical History: Denies Hx Arthritis Infectious Medical History: Denies: Hx Hepatitis Past Surgical History: Reports: Hx Abdominal Surgery, Hx Herniorrhaphy, Other - Colectomy for lower GI bleeding 2000. Denies: Hx Open Heart Surgery, Hx Pacemaker - Immunizations Hx Diphtheria, Pertussis, Tetanus Vaccination: No Physical Exam - Vital signs Vitals: Temp Pulse Resp BP Pulse Ox 98.2 F 109 H 15 110/68 98 11/06/16 14:08 11/06/16 14:08 11/06/16 14:11/06/16 14:08 11/06/16 14:08 Course - Vital Signs Vital signs: Temp Pulse Resp BP Pulse Ox 98.2 F 109 H 15 110/68 98 11/06/16 14:08 11/06/16 14:08 11/06/16 14:08 11/06/16 14:08 11/06/16 14:08
[2016-11-06 15:46] LABS: PROTHROMBIN TIME 13.3 SEC (11.4-15.4)
[2016-11-06 15:47] LABS: ABSOLUTE BASOPHILS # (AUTO) 0.1 10^3/uL (0.0-0.2); ABSOLUTE EOSINOPHILS # (AUTO) 0.1 10^3/uL (0.0-0.6); ABSOLUTE LYMPHOCYTES (AUTO) 1.7 10^3/uL (0.5-4.7); ABSOLUTE MONOCYTES (AUTO) 0.5 10^3/uL (0.1-1.4); ABSOLUTE NEUT (AUTO) 3.9 10^3/uL (1.7-8.2); BASOPHILS % (AUTO) 0.8 % (0-2); EOSINOPHILS % (AUTO) 1.8 % (0-6); HEMATOCRIT 22.6 % (37.9-51.0); HGB HCT DIFFERENCE -0.4; LYMPHOCYTES % (AUTO) 27.3 % (13-45); MEAN CORPUSCULAR HEMOGLOBIN 31.7 pg (27.0-33.4); MEAN CORPUSCULAR HGB CONC 32.7 g/dL (32.0-36.0); MEAN CORPUSCULAR VOLUME 97 fl (80-97); MONOCYTES % (AUTO) 7.5 % (3-13); PARTIAL THROMBOPLASTIN TIME 29.1 SEC (23.5-35.8); RED BLOOD COUNT 2.33 10^6/uL (4.35-5.55); RED CELL DISTRIBUTION WIDTH 15.3 % (11.5-14.0); SEGMENTED NEUTROPHILS % (AUTO) 62.6 % (42-78); WHITE BLOOD COUNT 6.3 10^3/uL (4.0-10.5)
[2016-11-06 15:51] LABS: ALANINE AMINOTRANSFERASE 45 U/L (21-72); ALBUMIN 3.5 g/dL (3.5-5.0); ALKALINE PHOSPHATASE 65 U/L (38-126); ANION GAP 16 (5-19); ASPARTATE AMINO TRANSFERASE 20 U/L (17-59); BILIRUBIN,DIRECT 0.3 mg/dL (0.0-0.4); BILIRUBIN,TOTAL 0.5 mg/dL (0.2-1.3); BLOOD UREA NITROGEN 16 mg/dL (7-20); CALCIUM 8.9 mg/dL (8.4-10.2); CARBON DIOXIDE 20 mmol/L (22-30); CHLORIDE 99 mmol/L (98-107); CREATININE RESULT 1.21 mg/dL (0.52-1.25); GLUCOSE 201 mg/dL (75-110); HEMOGLOBIN 7.4 g/dL (13.5-17.0); POTASSIUM 4.4 mmol/L (3.6-5.0); TOTAL PROTEIN 5.8 g/dL (6.3-8.2)
[2016-11-06] MEDS ORDERED: NORMAL SALINE 250 ML IV PRN ×2 (16:03)
--- NOTE | 2016-11-06 16:10 | ER Document Report ---
ED General - General Chief Complaint: Abnormal Lab Results Stated Complaint: ABNORMAL LABS Time Seen by Provider: 11/06/16 14:47 Mode of Arrival: Wheelchair Information source: Patient Notes: This is a 61-year-old man history of a recent diverticular bleed and was referred to the emergency room for weakness. Had had a sigmoidoscopy last week for his diverticular bleed and was observed in this hospital time. The patient did well and was discharged. He stated he was having normal bowel movements but started feeling weak. He had blood work in his doctor's office and was referred to the ER anemia. Hemoglobin was reported as 8. Had a recent hemoglobin of 12 reported by his doctor. TRAVEL OUTSIDE OF THE [place] IN LAST 30 DAYS: No - Related Data Allergies/Adverse Reactions: No Known Allergies Allergy (Verified 11/02/16 08:53) Past Medical History - General Information source: Patient - Social History Smoking Status: Never Smoker Chew tobacco use (# tins/day): No Frequency of alcohol use: Rare Drug Abuse: None Family History: Reviewed & Not Pertinent Patient has suicidal ideation: No Patient has homicidal ideation: No - Past Medical History Cardiac Medical History: Reports: Hx Hypertension Denies: Hx Coronary Artery Disease, Hx Heart Attack Pulmonary Medical History: Denies: Hx Asthma, Hx Bronchitis, Hx COPD, Hx Pneumonia Neurological Medical History: Reports: Hx Cerebrovascular Accident. Denies: Hx Seizures Endocrine Medical History: Reports: Hx Diabetes Mellitus Type 2 Renal/ Medical History: Denies: Hx Peritoneal Dialysis GI Medical History: Reports: Hx Diverticulitis, Hx Gastroesophageal Reflux Disease. Denies: Hx Hepatitis, Hx Hiatal Hernia, Hx Ulcer Musculoskeltal Medical History: Denies Hx Arthritis Infectious Medical History: Denies: Hx Hepatitis Past Surgical History: Reports: Hx Abdominal Surgery, Hx Herniorrhaphy, Other - Colectomy for lower GI bleeding 2000. Denies: Hx Open Heart Surgery, Hx Pacemaker - Immunizations Hx Diphtheria, Pertussis, Tetanus Vaccination: No Physical Exam - Vital signs Vitals: Temp Pulse Resp BP Pulse Ox 98.2 F 109 H 15 110/68 98 11/06/16 14:08 11/06/16 14:08 11/06/16 14:08 11/06/16 14:08 11/06/16 14:08 Notes: Physical exam: GENERAL:-year-old man, alert and oriented 3, appears pale and weak HEAD: Atraumatic, normocephalic. EYES: Pupils equal round and reactive to light, extraocular movements intact, sclera anicteric, conjunctiva are normal. ENT: TMs normal, nares patent, oropharynx clear without exudates. Moist mucous membranes. NECK: Normal range of motion, supple without lymphadenopathy or JVD. LUNGS: Breath sounds clear to auscultation bilaterally and equal. No wheezes rales or rhonchi. HEART: Regular rate and rhythm without murmurs, rubs or gallops. ABDOMEN: Soft, normoactive bowel sounds. No tenderness to palpation. No guarding, no rebound. No masses appreciated. Anus: no gross blood. Digital rectal not performed EXTREMITIES: Normal range of motion, no pitting or edema. No clubbing or cyanosis. NEUROLOGICAL: Cranial nerves II through XII grossly intact. Normal speech, normal gait. PSYCH: Normal mood, normal affect. SKIN: Warm, Dry, normal turgor, no rashes or lesions noted. Course - Re-evaluation Re-evalutation: 11/06/16 23:43 : Patient's hemoglobin was 7 and plan was for transfusion in the emergency room given that he was having normal bowel movements without blood. However, during the transfusion, he did have 2 large brown bloody bowel movements. He has been mildly tachycardic as well. Given the active bleeding, he will require admission. Unfortunately, we do not have GI backup so I have contacted [facility] who will accept patient in transfer. I have attempted to contact Dr George who is a community GI doctor without success. Mentioned above, there is no GI on in the hospital. - Vital Signs Vital signs: Temp Pulse Resp BP Pulse Ox 98.2 F 94 18 123/83 96 11/06/16 23:20 11/06/16 23:20 11/06/16 23:20 11/06/16 23:20 11/06/16 23:20 - Laboratory Result Diagrams: 11/06/16 15:10 11/06/16 15:10 Laboratory results interpreted by me: 11/06/16 11/06/16 11/06/16 15:10 15:10 15:10 RBC 2.33 L Hgb 7.4 L Hct 22.6 L RDW 15.3 H Sodium 135.0 L Carbon Dioxide 20 L Glucose 201 H Total Protein 5.8 L Crossmatch See Detail Critical Care Note - Critical Care Note Total time excluding time spent on procedures (mins): 60 Discharge - Discharge Clinical Impression: GI bleed Condition: Stable Disposition: [facility]
[2016-11-06] MEDS ORDERED: PANTOPRAZOLE SODIUM 40 MG VIAL IV ONE (23:47)
[2016-11-07 03:55] LABS: ABSOLUTE EOSINOPHILS # (AUTO) 0.1 10^3/uL (0.0-0.6); ABSOLUTE LYMPHOCYTES (AUTO) 1.7 10^3/uL (0.5-4.7); ABSOLUTE MONOCYTES (AUTO) 0.4 10^3/uL (0.1-1.4); ABSOLUTE NEUT (AUTO) 2.7 10^3/uL (1.7-8.2); BASOPHILS % (AUTO) 0.8 % (0-2); EOSINOPHILS % (AUTO) 2.8 % (0-6); HEMATOCRIT 22.5 % (37.9-51.0); HGB HCT DIFFERENCE 0.3; LYMPHOCYTES % (AUTO) 33.7 % (13-45); MEAN CORPUSCULAR HEMOGLOBIN 31.5 pg (27.0-33.4); MEAN CORPUSCULAR HGB CONC 33.7 g/dL (32.0-36.0); MEAN CORPUSCULAR VOLUME 94 fl (80-97); MONOCYTES % (AUTO) 8.4 % (3-13); RED CELL DISTRIBUTION WIDTH 15.3 % (11.5-14.0); SEGMENTED NEUTROPHILS % (AUTO) 54.3 % (42-78)
[2016-11-07 04:05] LABS: HEMOGLOBIN 7.6 g/dL (13.5-17.0)
[2016-11-07] MEDS ORDERED: NORMAL SALINE 1000 ML 1,000 ML IV ONE (04:09)
[2016-11-07] MEDS ORDERED: NORMAL SALINE 250 ML IV PRN (04:10)
[2016-11-07 10:48] VITALS: BP 142/82
== END 2016-11-07 10:53 | disposition short-term general hospital (02) ==
LOC: ER 13:58
DX: K92.2 Gastrointestinal hemorrhage, unspecified (principal); D64.9 Anemia, unspecified; R53.1 Weakness; I10 Essential (primary) hypertension; E11.9 Type 2 diabetes mellitus without complications; Z86.73 Personal history of transient ischemic attack (TIA), and cerebral infarction without residual deficits; Z98.890 Other specified postprocedural states; Z90.49 Acquired absence of other specified parts of digestive tract; Z87.19 Personal history of other diseases of the digestive system; R00.0 Tachycardia, unspecified
CPT/HCPCS: 99285; 96361; 96374; 86900; 86901; 36415; 36430; 86850; 85025; 85610; 85730; 82272; 80053; 86920; P9016; S0164; J7030; J7050

== ENCOUNTER → 2016-11-06 | Outpatient (CLI) | payer OTHER ==
[2016-11-06 09:09] LABS: HEMATOCRIT 23.6 % (37.9-51.0); HEMOGLOBIN 8.2 g/dL (13.5-17.0); MEAN CORPUSCULAR HEMOGLOBIN 33.3 pg (27.0-33.4); MEAN CORPUSCULAR HGB CONC 34.5 g/dL (32.0-36.0); MEAN CORPUSCULAR VOLUME 97 fl (80-97); RED BLOOD COUNT 2.45 10^6/uL (4.35-5.55); WHITE BLOOD COUNT 6.8 10^3/uL (4.0-10.5)
== END ==
LOC: LAB 08:56
PROVIDERS: ATTEND Physician Assistant Surgical
DX: K57.93 Diverticulitis of intestine, part unspecified, without perforation or abscess with bleeding (principal)
CPT/HCPCS: 36415; 85027

== ENCOUNTER → 2016-11-17 | Outpatient (CLI) | payer OTHER ==
[2016-11-17 09:39] LABS: ABSOLUTE EOSINOPHILS # (AUTO) 0.1 10^3/uL (0.0-0.6); ABSOLUTE MONOCYTES (AUTO) 0.7 10^3/uL (0.1-1.4); ABSOLUTE NEUT (AUTO) 3.2 10^3/uL (1.7-8.2); BASOPHILS % (AUTO) 0.9 % (0-2); EOSINOPHILS % (AUTO) 1.8 % (0-6); HEMATOCRIT 34.8 % (37.9-51.0); HEMOGLOBIN 11.8 g/dL (13.5-17.0); HGB HCT DIFFERENCE 0.6; LYMPHOCYTES % (AUTO) 19.8 % (13-45); MEAN CORPUSCULAR HEMOGLOBIN 32.3 pg (27.0-33.4); MEAN CORPUSCULAR HGB CONC 33.9 g/dL (32.0-36.0); MEAN CORPUSCULAR VOLUME 95 fl (80-97); RED BLOOD COUNT 3.65 10^6/uL (4.35-5.55); RED CELL DISTRIBUTION WIDTH 19.4 % (11.5-14.0); SEGMENTED NEUTROPHILS % (AUTO) 63.5 % (42-78); WHITE BLOOD COUNT 5.1 10^3/uL (4.0-10.5)
== END ==
LOC: OD 08:58
PROVIDERS: ATTEND Internal Medicine
DX: K92.2 Gastrointestinal hemorrhage, unspecified (principal)
CPT/HCPCS: 36415; 85025

== ENCOUNTER → 2018-01-14 | Outpatient (CLI) | payer BC ==
[2018-01-14 09:25] LABS: ABSOLUTE BASOPHILS # (AUTO) 0.1 10^3/uL (0.0-0.2); ABSOLUTE EOSINOPHILS # (AUTO) 0.2 10^3/uL (0.0-0.6); ABSOLUTE LYMPHOCYTES (AUTO) 1.5 10^3/uL (0.5-4.7); ABSOLUTE MONOCYTES (AUTO) 0.6 10^3/uL (0.1-1.4); ABSOLUTE NEUT (AUTO) 2.6 10^3/uL (1.7-8.2); BASOPHILS % (AUTO) 1.2 % (0-2); EOSINOPHILS % (AUTO) 4.7 % (0-6); HEMATOCRIT 43.1 % (37.9-51.0); HEMOGLOBIN 14.7 g/dL (13.5-17.0); LYMPHOCYTES % (AUTO) 30.7 % (13-45); MEAN CORPUSCULAR HEMOGLOBIN 31.6 pg (27.0-33.4); MEAN CORPUSCULAR HGB CONC 34.1 g/dL (32.0-36.0); MEAN CORPUSCULAR VOLUME 93 fl (80-97); MONOCYTES % (AUTO) 11.8 % (3-13); PLATELET COUNT 206 10^3/uL (150-450); RED BLOOD COUNT 4.66 10^6/uL (4.35-5.55); RED CELL DISTRIBUTION WIDTH 14.5 % (11.5-14.0); SEGMENTED NEUTROPHILS % (AUTO) 51.6 % (42-78); TOTAL CELLS COUNTED % (AUTO) 100 %
[2018-01-14 09:54] LABS: ALANINE AMINOTRANSFERASE 48 U/L (21-72); ALBUMIN 4.5 g/dL (3.5-5.0); ALKALINE PHOSPHATASE 47 U/L (38-126); ANION GAP 11 (5-19); ASPARTATE AMINO TRANSFERASE 35 U/L (17-59); BILIRUBIN,DIRECT 0.3 mg/dL (0.0-0.4); BILIRUBIN,TOTAL 0.9 mg/dL (0.2-1.3); BLOOD UREA NITROGEN 21 mg/dL (7-20); CARBON DIOXIDE 28 mmol/L (22-30); CHLORIDE 101 mmol/L (98-107); CHOLESTEROL 146.55 mg/dL (0-200); GLUCOSE 118 mg/dL (75-110); SODIUM 139.5 mmol/L (137-145); TOTAL PROTEIN 7.2 g/dL (6.3-8.2); TRIGLYCERIDES 182 mg/dL (<150)
[2018-01-14 10:06] LABS: DIRECT LDL 80 mg/dL (<100)
[2018-01-14 10:12] LABS: VLDL CHOLESTEROL 36.4 mg/dL (10-31)
[2018-01-15 12:37] LABS: CREATININE URINE 180.8 mg/dL (Not Estab.); MICROALBUMIN URINE 267.6 ug/mL (Not Estab.)
== END ==
LOC: OD 08:42
PROVIDERS: ATTEND Internal Medicine
DX: E11.9 Type 2 diabetes mellitus without complications (principal); E78.5 Hyperlipidemia, unspecified; R53.83 Other fatigue; K21.0 Gastro-esophageal reflux disease with esophagitis
CPT/HCPCS: 36415; 80053; 80061; 82043; 82570; 83036; 84443; 85025

== ENCOUNTER → 2019-10-19 | Outpatient (CLI) | payer BC ==
--- NOTE | 2019-10-19 12:17 | RADIOLOGY REPORT (SQ) ---
EXAM DESCRIPTION: VENOUS UNILATERAL LOWER IMAGES COMPLETED DATE/TIME: 10/19/2019 11:59 am REASON FOR STUDY: LLE PAIN/SWELLING M79.662 PAIN IN LEFT LOWER LEG M79.89 OTHER SPECIFIED SOFT TIS PADMA DISORDERS COMPARISON: None. TECHNIQUE: Dynamic and static dawson scale and color images acquired of the left leg venous system. Se lected spectral images acquired with additional compression and augmentation maneuvers. The contralat eral common femoral vein and saphenofemoral junction were also imaged. Images stored on PACS. LIMITATIONS: None. FINDINGS: COMMON FEMORAL: Normal phasicity, compression and augmentation. No visualized echogenic ma terial on dawson scale. No defects on color images. FEMORAL: Normal compression and augmentation. No visualized echogenic material on dawson scale. No defe cts on color images. POPLITEAL: Normal compression, augmentation. No visualized echogenic material on dawson scale. No defec ts on color images. CALF VESSELS: Normal compression, augmentation. No visualized echogenic material on dawson scale. No de fects on color images. GSV and SSV: Normal compression, augmentation. No visualized echogenic material on dawson scale. No def ects on color images. ANY DEEP VENOUS INSUFFICIENCY: Not evaluated. ANY EVIDENCE OF POPLITEAL CYST: There is a 3.8 x 1.6 cm fluid collection below the knee. OTHER: No other significant finding. CONTRALATERAL COMMON FEMORAL VEIN AND SAPHENOFEMORAL JUNCTION: Normal phasicity, compression and augmentation. No visualized echogenic material on dawson scale. No de fects on color images. IMPRESSION: There is no evidence of DVT or SVT in the left leg. There is a fluid collection. Its e xact relationship to the knee is not clear but a popliteal cyst cannot be excluded. TECHNICAL DOCUMENTATION: JOB ID: [id number] 2010 [employer]- All Rights Reserved Reading location - IP/workstation name: [email or web address]
== END ==
LOC: SP 10:51
PROVIDERS: ATTEND Internal Medicine
DX: M79.662 Pain in left lower leg (principal); M79.89 Other specified soft tissue disorders
CPT/HCPCS: 93971

== ENCOUNTER → 2019-10-31 | Outpatient (CLI) | payer BC ==
[2019-10-31 08:20] LABS: ABSOLUTE BASOPHILS # (AUTO) 0.1 10^3/uL (0.0-0.2); ABSOLUTE EOSINOPHILS # (AUTO) 0.2 10^3/uL (0.0-0.6); ABSOLUTE LYMPHOCYTES (AUTO) 1.4 10^3/uL (0.5-4.7); ABSOLUTE MONOCYTES (AUTO) 0.5 10^3/uL (0.1-1.4); ABSOLUTE NEUT (AUTO) 3.4 10^3/uL (1.7-8.2); BASOPHILS % (AUTO) 1.2 % (0-2); HEMATOCRIT 42.1 % (37.9-51.0); HEMOGLOBIN 14.5 g/dL (13.5-17.0); LYMPHOCYTES % (AUTO) 25.2 % (13-45); MEAN CORPUSCULAR HEMOGLOBIN 31.5 pg (27.0-33.4); MEAN CORPUSCULAR HGB CONC 34.3 g/dL (32.0-36.0); MEAN CORPUSCULAR VOLUME 92 fl (80-97); MONOCYTES % (AUTO) 9.6 % (3-13); PLATELET COUNT 233 10^3/uL (150-450); TOTAL CELLS COUNTED % (AUTO) 100 %; WHITE BLOOD COUNT 5.6 10^3/uL (4.0-10.5)
[2019-10-31 08:56] LABS: ALBUMIN 4.3 g/dL (3.5-5.0); ALKALINE PHOSPHATASE 88 U/L (38-126); ANION GAP 9 (5-19); ASPARTATE AMINO TRANSFERASE 29 U/L (17-59); BILIRUBIN,TOTAL 0.6 mg/dL (0.2-1.3); BLOOD UREA NITROGEN 25 mg/dL (7-20); CALCIUM 9.7 mg/dL (8.4-10.2); CARBON DIOXIDE 27 mmol/L (22-30); CHLORIDE 98 mmol/L (98-107); CHOLESTEROL 141.49 mg/dL (0-200); GLUCOSE 250 mg/dL (75-110); TOTAL PROTEIN 7.2 g/dL (6.3-8.2); TRIGLYCERIDES 295 mg/dL (<150)
[2019-10-31 09:06] LABS: DIRECT LDL 80 mg/dL (<100)
[2019-11-01 14:37] LABS: CREATININE URINE 220.7 mg/dL (Not Estab.)
[2019-11-01 15:00] LABS: MICROALBUMIN URINE 2077.2 ug/mL (Not Estab.)
== END ==
LOC: OD 07:06
PROVIDERS: ATTEND Internal Medicine
DX: I10 Essential (primary) hypertension (principal); E78.5 Hyperlipidemia, unspecified; E11.9 Type 2 diabetes mellitus without complications; R53.83 Other fatigue
CPT/HCPCS: 36415; 80053; 80061; 82043; 82570; 83036; 84443; 85025